=== PATIENT | female | born 1985 | race Caucasian/White ===

== ENCOUNTER 2017-03-06 11:31 | Day surgery (SDC) | payer OTHER ==
[~2017-03-06] VITALS: Ht 168.3 cm; Wt 99.8 kg
[~2017-03-06 11:31] MED LIST: DEPO-PROVER150 MG/ML IM; Motrin PO; Percocet 5/325,Endoc PO
[2017-03-06] MEDS ORDERED: ENDOCET 5-3251 EACH PO (11:43)
[2017-03-06] MEDS ORDERED: IBUPROFEN800 MG PO (11:43)
[2017-03-06 12:29] VITALS: BP 111/60
[2017-03-06 15:39] VITALS: BP 110/71
[2017-03-06 16:42] VITALS: BP 116/68
== END 2017-03-06 17:10 | disposition home or self-care (01) ==
LOC: SDC 11:31
DX: N92.0 Excessive and frequent menstruation with regular cycle (principal); R10.2 Pelvic and perineal pain; N83.8 Other noninflammatory disorders of ovary, fallopian tube and broad ligament; F17.200 Nicotine dependence, unspecified, uncomplicated; Z88.2 Allergy status to sulfonamides
CPT/HCPCS: 86850; 86900; 86901; 88307; J0131; J0690; J1100; J1170; J1200; J1885; J2175; J2250; J2405; J2710; J2765; J3010

== ENCOUNTER 2017-05-02 09:40 | Emergency (ER) | payer OTHER ==
[~2017-05-02] VITALS: Ht 167.6 cm; Wt 100.0 kg
[~2017-05-02 09:40] MED LIST changes: +ENDOCET 5-3251 EACH PO; +IBUPROFEN800 MG PO
[2017-05-02 10:15] LABS: BASOPHIL (%) 0.3 % (0-1); BASOPHIL COUNT 0.1 K/uL (0-0.1); EOSINOPHIL (%) 0.4 % (0-5); EOSINOPHIL COUNT 0.1 K/uL (0-0.3); HEMOGLOBIN 16.8 G/DL (11.9-15.5); IMMATURE GRANULOCYTE (%) 0.5 % (0.0-0.7); LYMPHOCYTE (%) 3.2 % (15-42); LYMPHOCYTE COUNT 0.6 K/uL (1.0-2.8); MCH 28.6 PG (29.0-34.0); MCHC 33.6 G/DL (30.0-36.0); MCV 85.2 FL (83-99); MONOCYTE COUNT 0.8 K/uL (0-0.8); NEUTROPHIL (%) 91.6 % (45-76); NEUTROPHIL COUNT 17.3 K/uL (1.8-6.4); PLATELET COUNT 298 K/uL (156-360); RBC DIS.WIDTH-CV 13.7 % (11.8-14.6); RBC DIS.WIDTH-SD 42.5 % (39-53); RED BLOOD COUNT 5.87 M/uL (3.80-5.20); WHITE BLOOD COUNT 18.9 K/uL (4.1-10.2)
[2017-05-02 10:23] LABS: ALBUMIN 4.7 g/dL (3.2-4.8)
[2017-05-02 10:24] LABS: CHLORIDE 113 mEq/L (99-109); POTASSIUM 4.1 mEq/L (3.7-5.4); SODIUM 142 mEq/L (136-147)
[2017-05-02 10:26] LABS: GLUCOSE 99 mg/dL (70-99); TOTAL PROTEIN 7.7 g/dL (6.4-8.3)
[2017-05-02 10:28] LABS: TOTAL BILIRUBIN 0.6 mg/dL (0.0-1.0)
[2017-05-02 10:29] LABS: ALKALINE PHOSPHATASE 113 IU/L (3-129)
[2017-05-02 10:30] LABS: CREATININE 0.9 mg/dL (0.6-1.3); GFR ESTIMATE (CALCULATED) > 59 mL/min/
[2017-05-02 10:31] LABS: AST (GOT) 24 IU/L (2-34); UREA NITROGEN (BUN) 13 mg/dL (9-23)
[2017-05-02 10:33] LABS: ALT (GPT) 22 IU/L (3-49)
[2017-05-02 10:38] LABS: QUANTITATIVE HCG < 4.0 MIU/ML
[2017-05-02 12:18] LABS: APPEARANCE SL.HAZY ((CLEAR)); BILIRUBIN NEGATIVE; BLOOD SMALL; COLOR YELLOW ((YELLOW)); GLUCOSE (STRIP) NEGATIVE; KETONES 80; LEUKOCYTES NEGATIVE; NITRITE NEGATIVE; PROTEIN (STRIP) 30; SPECIFIC GRAVITY 1.025 (1.000-1.030); UROBILINOGEN 0.2 MG/DL (0.2-1.0)
[2017-05-02 12:33] LABS: BACTERIA NONE SEEN /HPF; EPITHELIAL CELLS 1+ /HPF; HYALINE CASTS 0-5 /LPF; MUCUS TRACE /LPF; RED BLOOD CELLS 0-5 /HPF (0-5); UCUL ADDED? NO; WHITE BLOOD CELLS 0-5 /HPF (0-5)
[2017-05-02 15:32] VITALS: BP 120/81
== END 2017-05-02 15:36 | disposition home or self-care (01) ==
LOC: EME 09:40
PROVIDERS: Physician Assistant
DX: R11.2 Nausea with vomiting, unspecified (principal); R19.7 Diarrhea, unspecified; F17.200 Nicotine dependence, unspecified, uncomplicated; Z90.710 Acquired absence of both cervix and uterus; Z90.49 Acquired absence of other specified parts of digestive tract; Z88.2 Allergy status to sulfonamides
CPT/HCPCS: 80053; 81003; 84702; 85025; 99281; 99285; J2405; J7030; J7040

== ENCOUNTER 2017-06-17 04:19 | Emergency (ER) | payer OTHER ==
[~2017-06-17] VITALS: Ht 167.6 cm; Wt 101.2 kg
[2017-06-17 05:54] LABS: HEMATOCRIT 44.6 % (36.0-46.0); HEMOGLOBIN 15.1 G/DL (11.9-15.5); MCH 28.4 PG (29.0-34.0); MCHC 33.9 G/DL (30.0-36.0); MCV 83.8 FL (83-99); PLATELET COUNT 246 K/uL (156-360); RBC DIS.WIDTH-CV 15.4 % (11.8-14.6); RBC DIS.WIDTH-SD 46.9 % (39-53); RED BLOOD COUNT 5.32 M/uL (3.80-5.20); WHITE BLOOD COUNT 12.1 K/uL (4.1-10.2)
[2017-06-17 06:03] LABS: ALBUMIN 4.1 g/dL (3.2-4.8); CHLORIDE 107 mEq/L (99-109); POTASSIUM 3.2 mEq/L (3.7-5.4); SODIUM 139 mEq/L (136-147)
[2017-06-17 06:05] LABS: GLUCOSE 120 mg/dL (70-99)
[2017-06-17 06:06] LABS: TOTAL PROTEIN 6.8 g/dL (6.4-8.3)
[2017-06-17 06:07] LABS: TOTAL BILIRUBIN 0.8 mg/dL (0.0-1.0)
[2017-06-17 06:09] LABS: ALKALINE PHOSPHATASE 104 IU/L (3-129); CREATININE 0.8 mg/dL (0.6-1.3); GFR ESTIMATE (CALCULATED) > 59 mL/min/
[2017-06-17 06:10] LABS: UREA NITROGEN (BUN) 11 mg/dL (9-23)
[2017-06-17 06:11] LABS: AST (GOT) 17 IU/L (2-34)
[2017-06-17 06:12] LABS: ALT (GPT) 17 IU/L (3-49); LIPASE 23 U/L (1.0-51.0)
[2017-06-17 06:18] LABS: QUANTITATIVE HCG < 4.0 MIU/ML
[2017-06-17] MEDS ORDERED: ZOFRAN4 MG PO (06:42)
[2017-06-17] MEDS ORDERED: NORCO 5/3251 TABLET PO (06:42)
[2017-06-17 07:10] VITALS: BP 123/82
== END 2017-06-17 07:34 | disposition home or self-care (01) ==
LOC: EME 04:19
PROVIDERS: Emergency Medicine
DX: S20.219A Contusion of unspecified front wall of thorax, initial encounter (principal); W01.0XXA Fall on same level from slipping, tripping and stumbling without subsequent striking against object, initial encounter; E87.6 Hypokalemia; Z88.2 Allergy status to sulfonamides; Z90.49 Acquired absence of other specified parts of digestive tract; Z90.710 Acquired absence of both cervix and uterus; F17.200 Nicotine dependence, unspecified, uncomplicated
CPT/HCPCS: 71046; 80053; 83690; 84702; 85027; 93005; 99281; 99285